=== PATIENT | female | born 1940 | race Caucasian/White ===

== ENCOUNTER 2017-12-17 07:19 | Day surgery (SDC) | payer MEDICARE ==
[2017-12-16 12:33] VITALS: BMI 32.8
[2017-12-17 07:50] LABS: #Basophils 0.1 thou/uL (0.0-0.2); #Eosinphils 0.2 thou/uL (0.0-0.7); #Lymphocytes 2.2 thou/uL (1.20-3.40); #Monocytes 0.4 thou/uL (0.11-0.59); #Neutrophils 3.2 thou/uL (1.40-6.50); %Eosinophils 2.5 % (0.0-10.0); %Lymphocytes 36.8 % (21.0-51.0); %Monocytes 7.1 % (0.0-10.0); %Neutrophils 52.5 % (42.0-75.0); Hemoglobin 12.2 g/dL (12.0-16.0); Mean Corpuscular Hemoglobin 38.4 pg (27.0-31.0); Mean Platelet Volume 6.5 fL (7.4-10.4); Platelet Count 266 thou/uL (130-400); RBC Distribution Width 13.6 % (11.5-14.5); Red Blood Cell (RBC) Count 3.18 mill/uL (4.20-5.40); White Blood Cell (WBC) Count 6.1 thou/uL (4.8-10.8)
[2017-12-17 07:57] LABS: INR-International Normal Ratio 1.1; Prothrombin Time 13.8 SEC (12.0-14.7)
[2017-12-17 07:58] LABS: PTT 30.6 SEC (22.9-36.1)
[2017-12-17 08:26] VITALS: BP 171/83; TEMP 97.4
[2017-12-17] MEDS ORDERED: Midazolam HCl 2 mg/2 ml Vial ONE (08:56)
[2017-12-17] MEDS ORDERED: Sodium Bicarbonate 2.5 MEQ/5 ML VIAL ONE (08:57)
[2017-12-17] MEDS ORDERED: Fentanyl 100 MCG/2 ML VIAL ONE (08:57)
[2017-12-17] MEDS ORDERED: Lidocaine 1% PF 5 ML VIAL ONE (08:57)
--- NOTE | 2017-12-17 11:32 | ULT ---
ULTRASOUND GUIDED HEPATIC BIOPSY: CLINICAL HISTORY: A 77-year-old female with autoimmune hepatitis. PROCEDURE: Informed consent was obtained. The patient was escorted to the procedural suite and placed into a durham pine position. The left hepatic lobe was localized sonographically. The patient's ventral abdomen w as then prepped and draped in the standard sterile fashion. The patient was administered conscious s edation by the radiology nurse, Shelly Jiménez, and monitored accordingly, in stable condition, throu ghout the duration of the procedure. A small skin incision was made at the ventral abdomen, with sub sequent placement of a trocar and a biopsy needle into the leading edge of the left hepatic lobe. An 18 gauge biopsy was utilized to obtain two separate core specimens that were placed into a sealed fo rmalin container and sent to pathology for further analysis. All devices were removed from the patie nt. Post procedural imaging was performed, which revealed no evidence of a hematoma. There were no procedural complications. The patient was observed in radiology holding for a period of time prior t o discharge with a family member, in stable condition. IMPRESSION: Technically successful ultrasound-guided hepatic biopsy. The pathology results are pending. POS: [facility]
== END 2017-12-17 11:10 | disposition home or self-care (01) ==
LOC: ULT 07:19
PROVIDERS: ATTEND Internal Medicine Gastroenterology
PROC: 0FB23ZX Excision of Left Lobe Liver, Percutaneous Approach, Diagnostic (ICD-10-PCS; principal; 2017-12-17)
DX: K75.4 Autoimmune hepatitis (principal); Z79.52 Long term (current) use of systemic steroids; Z79.899 Other long term (current) drug therapy; Z88.0 Allergy status to penicillin; Z88.5 Allergy status to narcotic agent; Z91.040 Latex allergy status
CPT/HCPCS: 36415; 47000; 76942; 85025; 85610; 85730; 88307; 88313; J2001; J2250; J3010

== ENCOUNTER 2018-03-08 09:00 | Outpatient (CLI) | payer MEDICARE | END 2018-03-08 09:01 | disposition home or self-care (01) | LOC: BICMAMMO 09:00 | PROVIDERS: ATTEND Family Medicine | DX: Z12.31 Encounter for screening mammogram for malignant neoplasm of breast (principal); R92.1 Mammographic calcification found on diagnostic imaging of breast; Z85.89 Personal history of malignant neoplasm of other organs and systems | CPT/HCPCS: 77063; 77067 ==

== ENCOUNTER 2019-02-22 10:41 | Outpatient (CLI) | payer MEDICARE ==
--- NOTE | 2019-02-22 11:15 | CT ---
CT Stone Protocol 02/22/2019 12:00 AM HISTORY: Recurring urinary tract infections. History of bladder surgery years ago. Abdominal pain. COMPARISON: None. Technique: Multiple contiguous axial CT images are obtained through the abdomen and pelvis without IV contrast. Coronal reformats are provided. FINDINGS: This examination is limited for the evaluation of solid organs and vascular structures due to the lac k of intravenous contrast. Lower Chest: Dependent bibasilar atelectasis is present. Abdomen: Liver: Grossly normal nonenhanced CT appearance. Gallbladder: Multiple gallbladder calculi are visualized largest measuring 2 cm. Pancreas: Grossly normal nonenhanced CT appearance. Spleen: Grossly normal nonenhanced CT appearance. Adrenals: Grossly normal nonenhanced CT appearance. Kidneys: Difficult to characterize exophytic superior pole right renal cystic lesion measuring 1.5 cm . This statistically likely represents a renal cyst. Renal sonogram would be helpful for further characterization. A subcentimeter too small to characterize hypodense lesion is seen in the midportio n left kidney. There is a lobulated appearance of each kidney probably related to lobulation. No renal calculi are seen bilaterally. No overt hydronephrosis is seen. Ureters: There is mild nonspecific prominence of each ureter, but no ureteral calculus is seen. There is suggestion of mild thickening of the harris of each ureter greater on the right which could be related to prior infectious or inflammatory process. Pelvis: Urinary bladder: A large calculus is present in the urinary bladder measuring 2.3 cm x 1.4 cm in axia l dimensions. Reproductive Organs: Evidence of hysterectomy. Lymph Nodes: No enlarged lymph nodes. Bowel: Small bowel is normal in caliber. Small amount of retained fecal material is seen in the ascen ding and transverse colon. Colonic diverticula are seen in the ascending colon. Appendix: The appendix is normal in caliber. Peritoneum: No free fluid, free air, or fluid collection. Retroperitoneum: within normal limits. Vessels: Vascular calcifications are seen in the abdominal aorta and involving the iliac arteries.. Abdominal Wall: within normal limits. Bones: A burst type fracture involves the L1 vertebral body of indeterminate age. There is greater th an 50% loss of height involving the midportion and anterior vertebral body. Slight retropulsion of the posterior superior and inferior endplates of the vertebral body are present. Trace anterolisthesi s of L4 and L5 is present. Multilevel degenerative changes are seen in the spine. IMPRESSION: 1. Mild prominence of the ureters bilaterally with suggestion of mild thickening of the harris of each ureter. This is an overall nonspecific finding and may be related to a prior infectious or inflammatory process. No periureteral or perinephric inflammatory changes are seen, and there is no h ydronephrosis. 2. Hypodense exophytic lesion superior pole right kidney which is difficult to characterize but stati stically likely represents a cyst. A subcentimeter too small to characterize hypodense lesion is seen in the midportion left kidney. 3. Urinary bladder calculus measuring 2.3 cm x 1.4 cm. 4. Cholelithiasis. 5. Hysterectomy. 6. Colonic diverticulosis. 7. Burst fracture L1 vertebral body with exaggerated kyphosis at this level. The age of this fracture is difficult to determine based on CT evaluation.
== END 2019-02-22 10:42 | disposition home or self-care (01) ==
LOC: BICCT 10:41
PROVIDERS: ATTEND Urology
DX: R10.9 Unspecified abdominal pain (principal); N28.89 Other specified disorders of kidney and ureter; N21.0 Calculus in bladder; K80.20 Calculus of gallbladder without cholecystitis without obstruction; K57.30 Diverticulosis of large intestine without perforation or abscess without bleeding; S32.011A Stable burst fracture of first lumbar vertebra, initial encounter for closed fracture; M40.209 Unspecified kyphosis, site unspecified; Z90.710 Acquired absence of both cervix and uterus; Z96.0 Presence of urogenital implants
CPT/HCPCS: 74176

== ENCOUNTER 2019-03-08 10:14 | Outpatient (CLI) | payer MEDICARE ==
[2019-03-08 11:57] LABS: Hemoglobin 10.9 g/dL (12.0-16.0); Mean Corpuscular HGB CONC 33.9 g/dL (32.0-36.0); Mean Corpuscular Hemoglobin 39.9 pg (27.0-31.0); Mean Platelet Volume 7.1 fL (7.4-10.4); Platelet Count 284 thou/uL (130-400); RBC Distribution Width 14.4 % (11.5-14.5); Red Blood Cell (RBC) Count 2.73 mill/uL (4.20-5.40); White Blood Cell (WBC) Count 5.9 thou/uL (4.8-10.8)
[2019-03-08 12:01] LABS: Bacteria/HPF 4+ HPF (None Seen); Bilirubin Negative (Negative); Blood, Urine Negative (Negative); Clarity Clear (Clear); Glucose, Urine (Dipstick) Normal (Negative); Leukocyte 500 Leu/uL (Negative); Nitrite Negative (Negative); Protein, Urine (Dipstick) 20 mg/dL (Neg-Trace); Urobilinogen 6 mg/dL (Less than 2); WBC/HPF 21-50 HPF (0-3)
[2019-03-08 12:02] LABS: PTT 33.2 SEC (22.9-36.1); Prothrombin Time 13.5 SEC (12.0-14.7)
[2019-03-08 12:26] LABS: Anion Gap 14 mmol/L (10-20); BUN (Urea Nitrogen) 31 mg/dL (9.8-20.1); Calc. Creatinine Clearance 0 mL/min (70-130); Calcium 9.6 mg/dL (7.8-10.44); Carbon Dioxide 25 mmol/L (23-31); Chloride 100 mmol/L (98-107); Estimated GFR-MDRD 40; Glucose 87 mg/dL (83-110); Potassium 4.7 mmol/L (3.5-5.1); Sodium 134 mmol/L (136-145)
--- NOTE | 2019-03-11 10:09 | EKG ---
Test Reason : Blood Pressure : / mmHG Vent. Rate : 073 BPM Atrial Rate : 073 BPM P-R Int : 174 ms QRS Dur : 076 ms QT Int : 386 ms P-R-T Axes : 055 057 042 degrees QTc Int : 425 ms Sinus rhythm with Premature ventricular complexes or Fusion complexes Cannot rule out Anterior infarct , age undetermined Abnormal ECG Confirmed by MAX ELLSWORTH MD ([id number]) on 03/11/2019 10:08:46 AM Referred By: JAYE Confirmed By:MAX ELLSWORTH MD
== END 2019-03-08 10:15 | disposition home or self-care (01) ==
LOC: LABBT 10:14
PROVIDERS: ATTEND Urology
DX: Z01.818 Encounter for other preprocedural examination (principal); N21.0 Calculus in bladder; N20.1 Calculus of ureter
CPT/HCPCS: 80048; 81001; 85027; 85610; 85730; 87077; 87086; 87186; 93005; 93010

== ENCOUNTER 2019-03-09 07:56 | Outpatient (CLI) | payer MEDICARE ==
--- NOTE | 2019-03-09 09:32 | MMO ---
Bilateral MAMMO Bilat Screen [facility]. CLINICAL HISTORY: Patient is 79 years old and is seen for screening. The patient has no family history of breast cancer. VIEWS: The views performed were: bilateral craniocaudal with tomosynthesis and bilateral mediolateral oblique with tomosynthesis. FILMS COMPARED: The present examination has been compared to prior imaging studies performed at [facility] on 02/20/2014, 02/14/2016, 03/04/2017 and 03/08/2018. This study has been interpreted with the assistance of computer-aided detection. MAMMOGRAM FINDINGS: There are scattered fibroglandular densities. There are vascular calcifications seen in both breasts. There are no suspicious masses, suspicious calcifications, or new areas of architectural distortion. IMPRESSION: THERE IS NO MAMMOGRAPHIC EVIDENCE OF MALIGNANCY. A ROUTINE FOLLOW-UP MAMMOGRAM IN 1 YEAR IS RECOMMENDED. THE RESULTS OF THIS EXAM WERE SENT TO THE PATIENT. ACR BI-RADS Category 2 - Benign finding MAMMOGRAPHY NOTE: 1. A negative mammogram report should not delay a biopsy if a dominant of clinically suspicious mass is present. 2. Approximately 10% to 15% of breast cancers are not detected by mammography. 3. Adenosis and dense breasts may obscure an underlying neoplasm. Reported by: GABI GOMEZ MD Electonically Signed: [id number]
== END 2019-03-09 07:57 | disposition home or self-care (01) ==
LOC: BICMAMMO 07:56
PROVIDERS: ATTEND Family Medicine
DX: Z12.31 Encounter for screening mammogram for malignant neoplasm of breast (principal)
CPT/HCPCS: 77063; 77067

== ENCOUNTER 2019-03-11 05:45 | Day surgery (SDC) | payer MEDICARE ==
[2019-03-08 10:34] VITALS: BMI 26.5
[2019-03-11] MEDS ORDERED: Levofloxacin 500 mg/D5W 100 ml Premix Bag ONE (07:06)
[2019-03-11] MEDS ORDERED: Midazolam HCl 2 mg/2 ml Vial ONE (07:12)
[2019-03-11] MEDS ORDERED: Fentanyl 100 MCG/2 ML VIAL ONE (07:17)
[2019-03-11] MEDS ORDERED: Ketamine 50 MG/ML (10ML VIAL) ONE (07:19)
[2019-03-11] MEDS ORDERED: cefTRIAXone\\ROCEPHIN 1 GM VIAL ONE (07:33)
[2019-03-11] MEDS ORDERED: Sodium Chloride 0.9% 100 ML ONE (07:33)
[2019-03-11] MEDS ORDERED: Phenazopyridine HCl 97.5 MG TABLET ONE (08:47)
[2019-03-11] MEDS ORDERED: Oxybutynin 5 MG TAB ONE (08:47)
--- NOTE | 2019-03-11 10:53 | OP ---
DATE OF PROCEDURE: 03/11/2019 SERVICE: Urology. PREOPERATIVE DIAGNOSIS: Bladder stone. POSTOPERATIVE DIAGNOSIS: Bladder stone with retained foreign body of suture material and no ureteral calculi. PROCEDURES PERFORMED: Cystolitholapaxy with diagnostic ureteroscopy and removal of foreign body, complex removal. INDICATION FOR PROCEDURE: Mrs. Livingston is an 79-year-old white female, who presented with ongoing history of chronic bladder pain, urgency, frequency, and recurrent UTIs. Cystoscopy demonstrated a bladder stone what appeared to be a retained stent. CT did not demonstrate any problems in the ureter or retained stent by radiographic evidence. She is coming to the OR for removal of the foreign body and further diagnostic as to what this retained body is from. Risks and benefits, and alternatives have been discussed and she has agreed to proceed forward. DESCRIPTION OF PROCEDURE: After identification of armband and verification of consent, the patient was brought back to the operating room, where she underwent general anesthesia with an LMA. She was then placed in dorsal lithotomy position and prepped and draped in usual sterile fashion. After appropriate time-out, a lubricated 22-Ugandan rigid cystoscope was introduced per urethra into the bladder. A full cystoscopy was performed, which demonstrated what appeared to be a calcified linear material coming out from the right ureter into a large stone, which looked like a retained stent, although we know that is not what this is based off CT scan. A 1000 micron laser fiber was brought in, and cystolitholapaxy was begun of the large bladder stone. The stone was broken down into small pieces until the final stone got toward the foreign body, which revealed a white suture like material of abraded white suture similar to a Vicryl with a metal tip, which had become the nidus for the stone. The tip was extremely hard and dense, and was unable to be fragmented with the laser, but was able to be made small enough that it could be brought out through the urethra. The stone fragments were evacuated with the [employer] evacuator. A diagnostic ureteroscopy was performed with a rigid ureteroscope into the right ureter and it appeared that the suture material was actually emanating from near the ureteral orifice, but did not actually come from within the ureter. It was coming from the wall of the ureter and coming out into the bladder. From coming in with a ureteroscope into the right ureter, the origin point of the suture would be approximately 5 o'clock. Ureteroscopy was performed up to the mid ureter and no stones, foreign body, or strictures were noted. The ureter was widely patent and draining nicely. The ureteroscope was then removed, and the cystoscope was reinserted back into the bladder. Attempts to pull the suture out with flexible graspers gently was unsuccessful. Despite gentle traction, the suture material would not release indicating that it was tethered to either the graft material of her anterior prolapse repair or to some other suture material that was placed likely during her anterior repair or other gynecologic surgery. With as much traction as could be gained on the suture, the suture was gently left. It did retract somewhat, but stuck out more than it did before pulling traction on it. The endoscopic scissors were brought in and placed as close to the origin point of where the suture was coming out of the ureter and then clipped. The suture cut easily. The suture and foreign body within the bladder were then removed using flexible graspers. The origin point of the suture could no longer be seen and looked like the suture retracted back underneath the urothelium. Hopefully, the urothelium will heal over this area and she will not develop a stricture or another stone at the site. Satisfied that the foreign body and nidus for the stone now gone, and all the stone fragments had been evacuated using the Wireless Toyz evacuator. The cystoscope was used to empty the bladder and then removed. The patient was then awakened, taken to PACU for recovery in stable condition. COMPLICATIONS: None. ESTIMATED BLOOD LOSS: Minimal. RETAINED TUBES AND DRAINS: None. SPECIMENS: Stone for stone analysis and foreign body for identification. DISPOSITION: The patient will be discharged home and follow up with me in approximately 2 weeks for postop check. Job ID: [id number]
[2019-03-15 14:09] LABS: Ammonium Acid Urate 15 % (.); CA Phosphate 52 % (.); Color Tan (.); Mg Ammon Phos 30 % (.)
== END 2019-03-11 09:50 | disposition home or self-care (01) ==
LOC: SDC 05:45
PROVIDERS: ATTEND Urology
PROC: 0TCB8ZZ Extirpation of Matter from Bladder, Via Natural or Artificial Opening Endoscopic (ICD-10-PCS; principal; 2019-03-11)
DX: N21.0 Calculus in bladder (principal); E78.5 Hyperlipidemia, unspecified; I10 Essential (primary) hypertension; Z18.89 Other specified retained foreign body fragments; Z79.899 Other long term (current) drug therapy; Z88.5 Allergy status to narcotic agent; Z88.0 Allergy status to penicillin; Z91.040 Latex allergy status
CPT/HCPCS: 52318; 76000; 82365; 88300; C1769; J0696; J1956; J2250; J3010; J3490

== ENCOUNTER 2019-06-23 13:53 | Outpatient (CLI) | payer MEDICARE ==
--- NOTE | 2019-06-23 15:28 | ULT ---
Exam: Bilateral renal ultrasound HISTORY: Bladder calculi COMPARISON: None Correlation: CT stone protocol 02/22/2019 FINDINGS: Right kidney: Normal cortical echotexture. No hydronephrosis. Anechoic focus emanating from the upper pole measuring 1.7 x 1.4 x 1.6 cm, compatible with a cyst. Right kidney measurements: 9.0 x 4.0 x 4.1 cm. Left kidney: Normal cortical echotexture. No hydronephrosis Left kidney measurements 8.8 x 4.7 x 4.7 cm. Urinary bladder: Normal mucosa. Prevoid volume 243 mL. Post void volume 36 mL. Bilateral ureteral jet s are identified. Incidentals: Gallstone is noted IMPRESSION: No hydronephrosis.
== END 2019-06-23 13:54 | disposition home or self-care (01) ==
LOC: BICULT 13:53
PROVIDERS: ATTEND Urology
DX: N21.0 Calculus in bladder (principal)
CPT/HCPCS: 76770

== ENCOUNTER 2020-04-11 09:25 | Outpatient (CLI) | payer MEDICARE ==
--- NOTE | 2020-04-11 10:11 | BD ---
EXAM: Bone densitometry using DEXA HISTORY: 80 yo female. Screening for postmenopausal osteoporosis FINDINGS: L1--bone mineral density 1.067 g/sq cm; T score 0.7 ; Z score 3.1 L2--bone mineral density 1.140 g/sq cm; T score 1.0 ; Z score 3.7 L3--bone mineral density 1.128 g/sq cm; T score 0.4 ; Z score 3.2 L4--bone mineral density 1.041 g/sq cm; T score -0.2 ; Z score 2.7 Total L1-L4--bone mineral density 1.090 g/sq cm; T score 0.4 ; Z score 3.1 Left femoral neck--bone mineral density0.688; T score -1.5 ; Z score 0.9 Total proximal left femur--bone mineral density 0.826; T score -1.0 ; Z score 1.2 There has been an interval reduction of 8.4% in the BMD of the lumbar spine and a reduction of 23.2 % in the BMD of the proximal femur since the previous study of 02/28/2003. The 10 year fracture risk for a major osteoporotic fracture is 13% and for a hip fracture is 3.2%. IMPRESSION: Osteopenia
--- NOTE | 2020-04-11 10:51 | MMO ---
Bilateral MAMMO Bilat Screen [facility]. CLINICAL HISTORY: Patient is 80 years old and is seen for screening. The patient has no family history of breast cancer. VIEWS: The views performed were: bilateral craniocaudal with tomosynthesis and bilateral mediolateral oblique with tomosynthesis. FILMS COMPARED: The present examination has been compared to prior imaging studies performed at [facility] on 02/14/2016, 03/04/2017, 03/08/2018 and 03/09/2019. This study has been interpreted with the assistance of computer-aided detection. MAMMOGRAM FINDINGS: There are scattered fibroglandular densities. Benign calcifications are noted bilaterally. There are no suspicious masses, suspicious calcifications, or new areas of architectural distortion. IMPRESSION: THERE IS NO MAMMOGRAPHIC EVIDENCE OF MALIGNANCY. A ROUTINE FOLLOW-UP MAMMOGRAM IN 1 YEAR IS RECOMMENDED. THE RESULTS OF THIS EXAM WERE SENT TO THE PATIENT. ACR BI-RADS Category 2 - Benign finding MAMMOGRAPHY NOTE: 1. A negative mammogram report should not delay a biopsy if a dominant of clinically suspicious mass is present. 2. Approximately 10% to 15% of breast cancers are not detected by mammography. 3. Adenosis and dense breasts may obscure an underlying neoplasm. Reported by: ARELI SCHNEIDER MD Electonically Signed: [id number]
== END 2020-04-11 09:26 | disposition home or self-care (01) ==
LOC: BICMAMMO 09:25
PROVIDERS: ATTEND Family Medicine
DX: Z12.31 Encounter for screening mammogram for malignant neoplasm of breast (principal); N95.9 Unspecified menopausal and perimenopausal disorder; M85.852 Other specified disorders of bone density and structure, left thigh
CPT/HCPCS: 77063; 77067; 77080

== ENCOUNTER 2021-04-30 15:08 | Outpatient (CLI) | payer MEDICARE | END 2021-04-30 15:09 | disposition home or self-care (01) | LOC: BICMAMMO 15:08 | PROVIDERS: ATTEND Family Medicine | DX: Z12.31 Encounter for screening mammogram for malignant neoplasm of breast (principal); Z85.89 Personal history of malignant neoplasm of other organs and systems | CPT/HCPCS: 77063; 77067 ==

== ENCOUNTER 2022-05-28 09:21 | Outpatient (CLI) | payer MEDICARE | END 2022-05-28 09:22 | disposition home or self-care (01) | LOC: BICMAMMO 09:21 | PROVIDERS: ATTEND Family Medicine | DX: Z12.31 Encounter for screening mammogram for malignant neoplasm of breast (principal); M85.851 Other specified disorders of bone density and structure, right thigh; M85.852 Other specified disorders of bone density and structure, left thigh | CPT/HCPCS: 77063; 77067; 77080 ==

== ENCOUNTER 2023-06-09 11:39 | Outpatient (CLI) | payer MEDICARE | END 2023-06-09 11:40 | disposition home or self-care (01) | LOC: BICMAMMO 11:39 | PROVIDERS: ATTEND Family Medicine | DX: Z12.31 Encounter for screening mammogram for malignant neoplasm of breast (principal) | CPT/HCPCS: 77063; 77067 ==

== ENCOUNTER 2024-03-15 13:05 | Outpatient (CLI) | payer MEDICARE ==
[2024-03-15 14:46] LABS: #Basophils 0.05 10x3/uL (0.0-0.2); %Basophils 0.8 % (0.0-1.0); %Eosinophils 1.7 % (0.0-10.0); %Lymphocytes 31.4 % (21.0-51.0); %Monocytes 9.4 % (0.0-10.0); %Neutrophils 56.4 % (42.0-75.0); Hematocrit 36.5 % (36.0-47.0); Hemoglobin 11.8 g/dL (12.0-16.0); Mean Corpuscular HGB CONC 32.3 g/dL (32.0-36.0); Mean Corpuscular Hemoglobin 32.2 pg (27.0-31.0); Mean Corpuscular Volume 99.5 fL (78.0-98.0); Mean Platelet Volume 9.8 fL (7.4-10.4); Platelet Count 286 10x3/uL (130-400); RBC Distribution Width 16.5 % (11.5-14.5); Red Blood Cell (RBC) Count 3.67 mill/uL (4.20-5.40)
[2024-03-15 15:04] LABS: Anion Gap 13 mmol/L (10-20); BUN (Urea Nitrogen) 16 mg/dL (9.8-20.1); Calc. Creatinine Clearance 0 mL/min (70-130); Calcium 9.5 mg/dL (7.8-10.44); Carbon Dioxide 23 mmol/L (23-31); Chloride 102 mmol/L (98-107); Estimated GFR 53; Glucose 90 mg/dL (83-110); Potassium 4.5 mmol/L (3.5-5.1); Sodium 133 mmol/L (136-145)
[2024-03-15 15:05] LABS: ALT (SGPT) 14 U/L (8-55); AST (SGOT) 42 U/L (5-34); Albumin 3.2 g/dL (3.4-4.8); Alkaline Phosphatase 139 U/L (40-110); Bilirubin, Direct 0.2 mg/dL (0.1-0.3); Bilirubin, Total 0.5 mg/dL (0.2-1.2); Protein, Total 7.5 g/dL (5.8-8.1)
[2024-03-15 15:07] LABS: INR-International Normal Ratio 1.2; PTT 36.3 sec (22.9-36.1); Prothrombin Time 15.6 sec (12.0-14.7)
== END 2024-03-15 13:06 | disposition home or self-care (01) ==
LOC: LABBT 13:05
PROVIDERS: ATTEND Orthopaedic Surgery
DX: Z01.818 Encounter for other preprocedural examination (principal); M17.12 Unilateral primary osteoarthritis, left knee
CPT/HCPCS: 80048; 80076; 85025; 85610; 85730; 87081; 93005; 93010

== ENCOUNTER 2024-03-22 05:29 | Day surgery (SDC) | payer MEDICARE ==
[2024-03-15 13:47] VITALS: BMI 29.7
[2024-03-22] MEDS ORDERED: Midazolam HCl 2 mg/2 ml Vial ONE (06:18)
[2024-03-22] MEDS ORDERED: Dexamethasone 20 MG/5 ML VIAL ONE (06:18)
[2024-03-22] MEDS ORDERED: fentaNYL PF 100 MCG/2 ML SYRINGE ONE (06:18)
[2024-03-22] MEDS ORDERED: Ondansetron PF 4 MG/2 ML Vial ONE (06:18)
[2024-03-22] MEDS ORDERED: Lidocaine 1% PF 5 ML VIAL ONE (06:18)
[2024-03-22] MEDS ORDERED: PROPOFOL 0 ML ONE (06:18)
[2024-03-22] MEDS ORDERED: Lidocaine 2% 6 ML (Jelly) SYR ONE (06:19)
[2024-03-22] MEDS ORDERED: EPINEPHrine 1 MG/ML VIAL ONE (06:24)
[2024-03-22] MEDS ORDERED: Bupivacaine 0.25% HCL 30 ML VIAL ONE (06:25)
[2024-03-22] MEDS ORDERED: Ondansetron HCl/PF 4 MG/2 ML Vial IVP PRN (06:38)
[2024-03-22] MEDS ORDERED: Promethazine HCl 25 MG/ML VIAL IM PRN (06:38)
== END 2024-03-22 07:02 | disposition short-term general hospital (02) ==
LOC: SDC 05:29
PROVIDERS: ATTEND Orthopaedic Surgery
DX: M17.12 Unilateral primary osteoarthritis, left knee (principal); Z53.8 Procedure and treatment not carried out for other reasons; M79.89 Other specified soft tissue disorders
CPT/HCPCS: 82962; 93970; 96374; 99283; J1885; 36416; J0171; J0665; J1100; J2250; J2405; J2704

== ENCOUNTER 2024-03-22 07:34 | Emergency (ER) | payer MEDICARE ==
[2024-03-22] MEDS ORDERED: Ketorolac Tromethamine 30 MG (1 mL) VIAL ONE (09:22)
== END 2024-03-22 09:44 | disposition home or self-care (01) ==
LOC: ERS 07:34
DX: M71.22 Synovial cyst of popliteal space [Baker], left knee (principal); I10 Essential (primary) hypertension
CPT/HCPCS: 93970; J1885

== ENCOUNTER 2024-04-26 10:00 | Outpatient (CLI) | payer MEDICARE ==
[2024-04-26 11:36] LABS: #Basophils 0.05 10x3/uL (0.0-0.2); %Basophils 0.8 % (0.0-1.0); %Eosinophils 0.8 % (0.0-10.0); %Monocytes 8.3 % (0.0-10.0); %Neutrophils 65.9 % (42.0-75.0); Hematocrit 35.6 % (36.0-47.0); Mean Corpuscular HGB CONC 33.7 g/dL (32.0-36.0); Mean Corpuscular Hemoglobin 32.3 pg (27.0-31.0); Mean Platelet Volume 9.3 fL (7.4-10.4); Platelet Count 264 10x3/uL (130-400); RBC Distribution Width 16.9 % (11.5-14.5); Red Blood Cell (RBC) Count 3.71 mill/uL (4.20-5.40)
[2024-04-26 11:51] LABS: INR-International Normal Ratio 1.1; Prothrombin Time 14.6 sec (12.0-14.7)
[2024-04-26 11:52] LABS: PTT 35.3 sec (22.9-36.1)
[2024-04-26 14:14] LABS: ALT (SGPT) 11 U/L (8-55); AST (SGOT) 40 U/L (5-34); Albumin 3.3 g/dL (3.4-4.8); Alkaline Phosphatase 151 U/L (40-110); Bilirubin, Direct 0.3 mg/dL (0.1-0.3); Bilirubin, Total 0.6 mg/dL (0.2-1.2); Protein, Total 7.6 g/dL (5.8-8.1)
[2024-04-26 14:15] LABS: Anion Gap 14 mmol/L (10-20); BUN (Urea Nitrogen) 13 mg/dL (9.8-20.1); Calc. Creatinine Clearance 0 mL/min (70-130); Calcium 9.5 mg/dL (7.8-10.44); Carbon Dioxide 23 mmol/L (23-31); Chloride 105 mmol/L (98-107); Estimated GFR 70; Glucose 103 mg/dL (83-110); Potassium 4.7 mmol/L (3.5-5.1); Sodium 137 mmol/L (136-145)
== END 2024-04-26 10:01 | disposition home or self-care (01) ==
LOC: LABBT 10:00
PROVIDERS: ATTEND Orthopaedic Surgery
DX: Z01.812 Encounter for preprocedural laboratory examination (principal); M17.12 Unilateral primary osteoarthritis, left knee
CPT/HCPCS: 80048; 80076; 85025; 85730; 87081; 93005; 93010

== ENCOUNTER 2024-05-03 09:23 | Observation (INO) | payer MEDICARE ==
[2024-04-26 10:37] VITALS: BMI 29.7
[2024-05-03] MEDS ORDERED: Vancomycin 1 GM/200 ML (FROZEN) BAG ONE (10:13)
[2024-05-03] MEDS ORDERED: Tranexamic Acid 1,000 MG/10 ML VIAL ONE (10:13)
[2024-05-03] MEDS ORDERED: Sodium Chloride 0.9% 100 ML ONE (10:13)
[2024-05-03] MEDS ORDERED: PROPOFOL 20 ML ONE (10:24)
[2024-05-03] MEDS ORDERED: fentaNYL PF 100 MCG/2 ML SYRINGE ONE (10:24)
[2024-05-03] MEDS ORDERED: Ondansetron PF 4 MG/2 ML Vial ONE (10:25)
[2024-05-03] MEDS ORDERED: Lidocaine 2% 6 ML (Jelly) SYR ONE (10:25)
[2024-05-03] MEDS ORDERED: Dexamethasone 20 MG/5 ML VIAL ONE (10:25)
[2024-05-03] MEDS ORDERED: Lidocaine 1% PF 5 ML VIAL ONE (10:25)
[2024-05-03] MEDS ORDERED: Bupivacaine PF 0.5% 30 ML VIAL ONE (10:29)
[2024-05-03] MEDS ORDERED: fentaNYL 50 mcg/mL 1 mL Vial ONE ×3 (10:29→13:23)
[2024-05-03] MEDS ORDERED: EPINEPHrine 1 MG/ML VIAL ONE (10:44)
[2024-05-03] MEDS ORDERED: Midazolam HCl 2 mg/2 ml Vial ONE (10:44)
[2024-05-03] MEDS ORDERED: Bupivacaine 0.25% HCL 30 ML VIAL ONE (10:44)
[2024-05-03] MEDS ORDERED: CEFAZOLIN 2 GM VIAL ONE (11:13)
[2024-05-03] MEDS ORDERED: Zolpidem Tartrate 5 MG TAB PO PRN (11:30)
[2024-05-03] MEDS ORDERED: Ropivacaine 0.2% 550 ML 550 ML NERVE BLCK SCH (11:30)
[2024-05-03] MEDS ORDERED: fentaNYL 50 mcg/mL 1 mL Vial SLOW IVP PRN (11:30)
[2024-05-03] MEDS ORDERED: Ondansetron PF 4 MG/2 ML Vial IVP PRN (11:30)
[2024-05-03] MEDS ORDERED: HYDROcodone/Acetaminophen 10/325 mg Tablet PO PRN (11:30)
[2024-05-03] MEDS ORDERED: Promethazine HCl 25 MG/ML VIAL IM PRN (11:30)
[2024-05-03] MEDS ORDERED: ePHEDrine Sulfate 50 MG/10 ML VIAL ONE (11:35)
[2024-05-03] MEDS ORDERED: diphenhydrAMINE 25 MG CAP PO PRN (13:29)
[2024-05-03] MEDS: Ketorolac Tromethamine 30 MG (1 mL) VIAL IVP SCH (16:06)
[2024-05-03] MEDS: Acetaminophen 325 MG TAB PO PRN (16:58)
[2024-05-03] MEDS: Sodium Chloride 0.9% 1,000 ML IV SCH (17:00)
[2024-05-03] MEDS: CEFAZOLIN 2 GM in Sodium Chloride 0.9% 100 ML IVPB SCH (20:13)
[2024-05-03] MEDS: Aspirin 81 mg Enteric Coated Tablet PO SCH (20:14)
[2024-05-03] MEDS: Ferrous Gluconate 324 MG TAB PO SCH (20:14)
[2024-05-03] MEDS: Senokot S 8.6-50 MG TAB PO SCH (20:15)
[2024-05-04] MEDS: HYDROcodone/Acetaminophen 10/325 mg Tablet PO PRN (00:09)
[2024-05-04 06:48] LABS: Hematocrit 28.1 % (36.0-47.0); Hemoglobin 9.4 g/dL (12.0-16.0); Mean Corpuscular HGB CONC 33.5 g/dL (32.0-36.0); Mean Corpuscular Hemoglobin 31.6 pg (27.0-31.0); Mean Corpuscular Volume 94.6 fL (78.0-98.0); Mean Platelet Volume 9.9 fL (7.4-10.4); Platelet Count 202 10x3/uL (130-400); RBC Distribution Width 17.4 % (11.5-14.5); Red Blood Cell (RBC) Count 2.97 mill/uL (4.20-5.40)
[2024-05-04] MEDS: Cyanocobalamin (Vitamin B-12) 1,000 MCG TAB PO SCH (08:27)
[2024-05-04] MEDS: predniSONE 1 MG TAB PO SCH (08:28)
[2024-05-04] MEDS: Metoprolol Tartrate 50 MG TAB PO SCH (08:28)
[2024-05-04] MEDS: Multivitamin W/ Minerals 1 TAB PO SCH (08:29)
[2024-05-04] MEDS: Rosuvastatin 20 MG TAB PO SCH (08:29)
[2024-05-04] MEDS: azaTHIOprine 50 MG TAB PO SCH (08:29)
[2024-05-05 04:34] LABS: Hematocrit 29.3 % (36.0-47.0); Hemoglobin 9.8 g/dL (12.0-16.0); Mean Corpuscular HGB CONC 33.4 g/dL (32.0-36.0); Mean Corpuscular Hemoglobin 32.2 pg (27.0-31.0); Mean Corpuscular Volume 96.4 fL (78.0-98.0); Platelet Count 206 10x3/uL (130-400); Red Blood Cell (RBC) Count 3.04 mill/uL (4.20-5.40)
[2024-05-05 15:23] VITALS: BP 110/69; TEMP 97.9
== END 2024-05-05 15:25 | disposition home or self-care (01) ==
LOC: SDC 09:23 → SURG A 15:59
PROVIDERS: ADMIT Orthopaedic Surgery; ATTEND Orthopaedic Surgery
PROC: 0SRD0JZ Replacement of Left Knee Joint with Synthetic Substitute, Open Approach (ICD-10-PCS; principal; 2024-05-03)
PROC: 3E0T3BZ Introduction of Anesthetic Agent into Peripheral Nerves and Plexi, Percutaneous Approach (ICD-10-PCS; 2024-05-03)
DX: M17.12 Unilateral primary osteoarthritis, left knee (principal); I10 Essential (primary) hypertension; E78.5 Hyperlipidemia, unspecified; E53.8 Deficiency of other specified B group vitamins; K75.4 Autoimmune hepatitis; N28.9 Disorder of kidney and ureter, unspecified; Z91.040 Latex allergy status; Z88.0 Allergy status to penicillin; Z88.8 Allergy status to other drugs, medicaments and biological substances; Z88.5 Allergy status to narcotic agent; Z79.899 Other long term (current) drug therapy
CPT/HCPCS: 0055T; 27447; 64448; 36415; 36416; 85027; A4306; C1713; C1776; C1889; J0171; J0665; J1100; J1885; J2250; J2405; J2704; J2795; J3010; J3370; J7030; J7500; J7512

== ENCOUNTER 2024-06-15 07:56 | Outpatient (CLI) | payer MEDICARE | END 2024-06-15 07:57 | disposition home or self-care (01) | LOC: BICMAMMO 07:56 | PROVIDERS: ATTEND Family Medicine | DX: Z12.31 Encounter for screening mammogram for malignant neoplasm of breast (principal); Z78.0 Asymptomatic menopausal state; M85.851 Other specified disorders of bone density and structure, right thigh; M85.852 Other specified disorders of bone density and structure, left thigh; Z85.89 Personal history of malignant neoplasm of other organs and systems | CPT/HCPCS: 77063; 77067; 77080 ==

== ENCOUNTER 2025-03-05 13:14 | Inpatient (IN) | payer MEDICARE ==
[2025-03-05 14:39] LABS: #Basophils 0.03 10x3/uL (0.0-0.2); #Eosinophils 0.04 10x3/uL (0.0-0.7); #Monocytes 0.27 10x3/uL (0.11-0.59); #Neutrophils 3.78 10x3/uL (1.40-6.50); %Basophils 0.6 % (0.0-1.0); %Eosinophils 0.8 % (0.0-10.0); %Lymphocytes 17.0 % (21.0-51.0); %Monocytes 5.4 % (0.0-10.0); %Neutrophils 75.6 % (42.0-75.0); Hematocrit 31.8 % (36.0-47.0); Hemoglobin 10.8 g/dL (12.0-16.0); Mean Corpuscular Hemoglobin 33.0 pg (27.0-31.0); Mean Corpuscular Volume 97.2 fL (78.0-98.0); Platelet Count 210 10x3/uL (130-400); Red Blood Cell (RBC) Count 3.27 mill/uL (4.20-5.40); White Blood Cell (WBC) Count 5.00 10x3/uL (4.8-10.8)
[2025-03-05 14:58] LABS: ALT (SGPT) 92 U/L (Less than 34); AST (SGOT) 362 U/L (11-34); Albumin 2.3 g/dL (3.1-4.5); Alkaline Phosphatase 311 U/L (40-110); Anion Gap 17 mmol/L (10-20); BUN (Urea Nitrogen) 43 mg/dL (9.8-20.1); Bilirubin, Total 2.5 mg/dL (0.3-1.2); Calc. Creatinine Clearance 0 mL/min (70-130); Calcium 8.6 mg/dL (7.8-10.44); Carbon Dioxide 17 mmol/L (23-31); Chloride 105 mmol/L (98-107); Globulin 4.1 g/dL (2.4-3.5); Glucose 95 mg/dL (83-110); Magnesium 2.3 mg/dL (1.6-2.6); Potassium 4.5 mmol/L (3.5-5.1); Sodium 134 mmol/L (136-145)
[2025-03-05] MEDS ORDERED: Enoxaparin 80 MG (0.8 mL) SYRINGE ONE (16:22)
[2025-03-05 18:29] LABS: Bacteria/HPF 3+ HPF (None Seen); CAUTI Indications for Culture Alt mental st,lethar; Glucose, Urine (Dipstick) Normal (Negative); Leukocyte 500 Leu/uL (Negative); Protein, Urine (Dipstick) 100 mg/dL (Neg-Trace); RBC/HPF 21-50 HPF (0-3); Specific Gravity, Urine 1.017 (1.002-1.036); WBC/HPF Greater than 50 HPF (0-3)
[2025-03-05 18:30] LABS: Urine Culture Reflex Yes Yes
[2025-03-05] MEDS ORDERED: Calcium Carbonate 500 MG ChewTAB PO PRN (18:37)
[2025-03-05] MEDS ORDERED: Guaifenesin DM 100-10/5 ML UDCUP PO PRN (18:37)
[2025-03-05] MEDS ORDERED: HYDROcodone/Acetaminophen 10/325 mg Tablet PO PRN (18:41)
[2025-03-05] MEDS ORDERED: Heparin 10,000 UNITS/ 10 ML VIAL SLOW IVP SCH (18:45)
[2025-03-05 21:51] LABS: Hematocrit 31.5 % (36.0-47.0); Hemoglobin 10.4 g/dL (12.0-16.0); Platelet Count 183 10x3/uL (130-400)
[2025-03-05] MEDS: Rosuvastatin 20 MG TAB PO SCH (22:01)
[2025-03-05] MEDS: Aspirin 81 mg Enteric Coated Tablet PO SCH (22:01)
[2025-03-05 23:04] LABS: Hematocrit 29.5 % (36.0-47.0); Hemoglobin 9.8 g/dL (12.0-16.0); Platelet Count 164 10x3/uL (130-400)
[2025-03-05] MEDS: Acetaminophen 325 MG TAB PO SCH (23:38)
[2025-03-06 06:03] LABS: #Basophils 0.03 10x3/uL (0.0-0.2); #Eosinophils 0.07 10x3/uL (0.0-0.7); #Monocytes 0.21 10x3/uL (0.11-0.59); #Neutrophils 3.02 10x3/uL (1.40-6.50); %Basophils 0.6 % (0.0-1.0); %Eosinophils 1.5 % (0.0-10.0); %Lymphocytes 29.5 % (21.0-51.0); %Monocytes 4.4 % (0.0-10.0); %Neutrophils 63.6 % (42.0-75.0); Hematocrit 28.4 % (36.0-47.0); Hemoglobin 9.9 g/dL (12.0-16.0); Mean Corpuscular Hemoglobin 33.3 pg (27.0-31.0); Mean Corpuscular Volume 95.6 fL (78.0-98.0); Platelet Count 162 10x3/uL (130-400); Red Blood Cell (RBC) Count 2.97 mill/uL (4.20-5.40); White Blood Cell (WBC) Count 4.75 10x3/uL (4.8-10.8)
[2025-03-06 06:18] LABS: Anion Gap 14 mmol/L (10-20); BUN (Urea Nitrogen) 41 mg/dL (9.8-20.1); Calc. Creatinine Clearance 21 mL/min (70-130); Calcium 8.1 mg/dL (7.8-10.44); Carbon Dioxide 17 mmol/L (23-31); Chloride 109 mmol/L (98-107); Glucose 73 mg/dL (83-110); Potassium 4.6 mmol/L (3.5-5.1); Sodium 135 mmol/L (136-145)
[2025-03-06] MEDS ORDERED: Metoprolol Succinate XL 100 MG ER.TAB PO SCH (09:00)
[2025-03-06] MEDS: LevoFLOXacin 250 mg/D5W 250 MG in Premix 1 BAG IVPB SCH (13:02)
[2025-03-06] MEDS ORDERED: Heparin 10,000 UNITS/ 10 ML VIAL SLOW IVP SCH (16:00)
[2025-03-06 23:17] LABS: Iron 130 ug/dL (50-170); Iron Binding Capacity, Total 120 mcg/dL (265-497)
[2025-03-07 05:09] LABS: #Basophils 0.04 10x3/uL (0.0-0.2); #Eosinophils 0.04 10x3/uL (0.0-0.7); #Monocytes 0.16 10x3/uL (0.11-0.59); #Neutrophils 3.50 10x3/uL (1.40-6.50); %Basophils 0.9 % (0.0-1.0); %Eosinophils 0.9 % (0.0-10.0); %Lymphocytes 18.0 % (21.0-51.0); %Monocytes 3.5 % (0.0-10.0); %Neutrophils 75.8 % (42.0-75.0); Hematocrit 25.7 % (36.0-47.0); Hemoglobin 8.8 g/dL (12.0-16.0); Mean Corpuscular Hemoglobin 33.6 pg (27.0-31.0); Mean Corpuscular Volume 98.1 fL (78.0-98.0); Platelet Count 137 10x3/uL (130-400); Red Blood Cell (RBC) Count 2.62 mill/uL (4.20-5.40); White Blood Cell (WBC) Count 4.61 10x3/uL (4.8-10.8)
[2025-03-07 05:42] LABS: Anion Gap 16 mmol/L (10-20); BUN (Urea Nitrogen) 49 mg/dL (9.8-20.1); Calc. Creatinine Clearance 17 mL/min (70-130); Calcium 7.8 mg/dL (7.8-10.44); Carbon Dioxide 16 mmol/L (23-31); Chloride 110 mmol/L (98-107); Glucose 79 mg/dL (83-110); Potassium 4.9 mmol/L (3.5-5.1); Sodium 137 mmol/L (136-145)
[2025-03-07] MEDS ORDERED: fentaNYL PF 100 MCG/2 ML SYRINGE ONE (14:44)
[2025-03-07] MEDS ORDERED: PROPOFOL 20 ML ONE ×2 (14:45→15:03)
[2025-03-07] MEDS ORDERED: Rocuronium Bromide 10 MG/ML (10ML VIAL) ONE (14:45)
[2025-03-07] MEDS ORDERED: Lidocaine 1% PF 5 ML VIAL ONE (14:45)
[2025-03-07] MEDS ORDERED: Etomidate 40 MG (20 mL) VIAL ONE (15:34)
[2025-03-07] MEDS ORDERED: PHENYLEPHRINE-NS 100 MCG/ML 10 ML SYRINGE ONE (16:14)
[2025-03-07 16:42] LABS: ALT (SGPT) 82 U/L (Less than 34); AST (SGOT) 355 U/L (11-34); Albumin 1.8 g/dL (3.1-4.5); Alkaline Phosphatase 259 U/L (40-110); Bilirubin, Direct 2.2 mg/dL (0.1-0.3); Bilirubin, Total 2.6 mg/dL (0.3-1.2)
[2025-03-07] MEDS ORDERED: Ondansetron PF 4 MG/2 ML Vial ONE (16:55)
[2025-03-07] MEDS ORDERED: SUGAMMADEX SODIUM 200 MG/2 ML VIAL ONE ×2 (16:55→17:00)
[2025-03-07] MEDS: Albumin 25% 25 GM (100 mL) BOT IVPB SCH ×2 (18:18→22:04)
[2025-03-07] MEDS ORDERED: Hydrocortisone Sod Succ/PF 100 mg/2 ml Vial ONE (18:52)
[2025-03-07] MEDS: Hydrocortisone Sod Succ/PF 100 mg/2 ml Vial IVP SCH (18:54)
[2025-03-07 19:29] LABS: Hematocrit 26.9 % (36.0-47.0); Hemoglobin 8.7 g/dL (12.0-16.0)
[2025-03-07] MEDS ORDERED: Glucagon 1 MG/ML KIT IM PRN (23:19)
[2025-03-07] MEDS: Norepinephrine 8 MG/0.9% NS 250 ML IVPB SCH (23:32)
[2025-03-08] MEDS: Dextrose 50% Abboject 50 ML SYRINGE SLOW IVP PRN (00:20)
[2025-03-08 05:58] LABS: INR-International Normal Ratio 2.3; PTT 79.7 sec (22.9-36.1); Prothrombin Time 25.1 sec (12.0-14.7)
[2025-03-08 06:04] LABS: Hematocrit 25.2 % (36.0-47.0); Hemoglobin 8.6 g/dL (12.0-16.0); Mean Corpuscular Hemoglobin 33.9 pg (27.0-31.0); Mean Corpuscular Volume 99.2 fL (78.0-98.0); Platelet Count 140 10x3/uL (130-400); Red Blood Cell (RBC) Count 2.54 mill/uL (4.20-5.40); White Blood Cell (WBC) Count 5.32 10x3/uL (4.8-10.8)
[2025-03-08 07:09] LABS: ALT (SGPT) 92 U/L (Less than 34); AST (SGOT) 431 U/L (11-34); Albumin 2.2 g/dL (3.1-4.5); Alkaline Phosphatase 291 U/L (40-110); Anion Gap 19 mmol/L (10-20); BUN (Urea Nitrogen) 55 mg/dL (9.8-20.1); Bilirubin, Total 3.9 mg/dL (0.3-1.2); Calc. Creatinine Clearance 14 mL/min (70-130); Calcium 7.3 mg/dL (7.8-10.44); Carbon Dioxide 13 mmol/L (23-31); Chloride 109 mmol/L (98-107); Globulin 3.2 g/dL (2.4-3.5); Glucose 154 mg/dL (83-110); Potassium 5.1 mmol/L (3.5-5.1); Sodium 136 mmol/L (136-145)
[2025-03-08 08:37] LABS: Anisocytosis MODERATE=16-30 cells HPF (0-5); Giant Platelets 1.0 % (0-5); Macrocytosis SLIGHT = 6-15 cells HPF (0-5); Platelet Adequacy Comment Platelets Normal; Polychromasia SLIGHT = 2-3 cells HPF (0-2); Schistocytes SLIGHT = 2-5 cells HPF (0-1); Smudge Cells 3.9 %; Target Cells SLIGHT = 2-5 cells HPF (0-1); Toxic Granulation SLIGHT
[2025-03-08] MEDS: Mupirocin 1 GM TUBE NASAL DECOLONIZATION NASAL SCH (09:24)
[2025-03-08] MEDS: Hydrocortisone Sod Succ/PF 100 mg/2 ml Vial IVP SCH (09:24)
[2025-03-08] MEDS: Nitroglycerin 50 MG/250 ML BOT 0 ML ONE (10:50)
[2025-03-08 15:21] LABS: INR-International Normal Ratio 2.1; Prothrombin Time 23.3 sec (12.0-14.7)
[2025-03-08 15:23] LABS: PTT 70.0 sec (22.9-36.1)
[2025-03-08] MEDS ORDERED: Sodium Bicarbonate 2.5 MEQ/5 ML SDV ONE (16:46)
[2025-03-08] MEDS ORDERED: Lidocaine 1% w/Epinephrine 1:100K 20 ML VIAL ONE ×2 (16:46→18:02)
[2025-03-08] MEDS ORDERED: Iopamidol 100 ML FS ONE (16:47)
[2025-03-08] MEDS ORDERED: Lidocaine 1% PF 5 ML VIAL ONE (16:47)
[2025-03-08] MEDS: Vancomycin 1 GM in Sodium Chloride 0.9% 250 ML 250 ML IVPB ONE (18:21)
[2025-03-08] MEDS: Albumin 25% 25 GM (100 mL) BOT IVPB SCH (18:50)
[2025-03-08] MEDS: Vancomycin 1 GM in Premix 1 BAG IVPB SCH (18:55)
[2025-03-08 21:28] LABS: Protein, Urine Random Quant 127 mg/dL (1-14); Sodium, Urine Less than 20 mmol/L (Not Available); Urea Nitrogen, Random Urine 339 mg/dl
[2025-03-09 04:44] LABS: #Basophils Less than 0.03 10x3/uL (0.0-0.2); #Eosinophils Less than 0.03 10x3/uL (0.0-0.7); #Monocytes 0.15 10x3/uL (0.11-0.59); #Neutrophils 3.83 10x3/uL (1.40-6.50); %Basophils 0.2 % (0.0-1.0); %Eosinophils 0.0 % (0.0-10.0); %Lymphocytes 7.1 % (21.0-51.0); %Monocytes 3.4 % (0.0-10.0); %Neutrophils 88.2 % (42.0-75.0); Hematocrit 21.0 % (36.0-47.0); Hemoglobin 7.3 g/dL (12.0-16.0); Mean Corpuscular Hemoglobin 33.8 pg (27.0-31.0); Mean Corpuscular Volume 97.2 fL (78.0-98.0); Platelet Count 148 10x3/uL (130-400); Red Blood Cell (RBC) Count 2.16 mill/uL (4.20-5.40); White Blood Cell (WBC) Count 4.35 10x3/uL (4.8-10.8)
[2025-03-09 05:08] LABS: INR-International Normal Ratio 2.2; Prothrombin Time 24.4 sec (12.0-14.7)
[2025-03-09 05:11] LABS: PTT 73.2 sec (22.9-36.1)
[2025-03-09 05:27] LABS: ALT (SGPT) 89 U/L (Less than 34); AST (SGOT) 437 U/L (11-34); Albumin 3.2 g/dL (3.1-4.5); Alkaline Phosphatase 257 U/L (40-110); Anion Gap 23 mmol/L (10-20); BUN (Urea Nitrogen) 59 mg/dL (9.8-20.1); Bilirubin, Total 3.9 mg/dL (0.3-1.2); Calc. Creatinine Clearance 12 mL/min (70-130); Calcium 6.8 mg/dL (7.8-10.44); Carbon Dioxide 17 mmol/L (23-31); Chloride 101 mmol/L (98-107); Globulin 2.8 g/dL (2.4-3.5); Glucose 145 mg/dL (83-110); Potassium 4.5 mmol/L (3.5-5.1); Sodium 136 mmol/L (136-145)
[2025-03-09] MEDS: CALCIUM GLUC 1 GM/NS 50 ML 1 GM in Premix 1 BAG IVPB SCH (06:36)
[2025-03-09] MEDS: prednisoLONE 15 MG/5 ML UDCUP PO SCH (09:27)
[2025-03-09] MEDS: FLU (Fluad Triv) 25-26 (65UP)PF 45 MCG/0.5 ML Syringe IM ONE (19:29)
[2025-03-10 05:45] LABS: ALT (SGPT) 87 U/L (Less than 34); AST (SGOT) 455 U/L (11-34); Albumin 3.2 g/dL (3.1-4.5); Alkaline Phosphatase 260 U/L (40-110); Anion Gap 19 mmol/L (10-20); BUN (Urea Nitrogen) 54 mg/dL (9.8-20.1); Bilirubin, Total 3.6 mg/dL (0.3-1.2); Calc. Creatinine Clearance 12 mL/min (70-130); Calcium 6.8 mg/dL (7.8-10.44); Carbon Dioxide 21 mmol/L (23-31); Chloride 98 mmol/L (98-107); Globulin 2.6 g/dL (2.4-3.5); Glucose 110 mg/dL (83-110); Potassium 4.1 mmol/L (3.5-5.1); Sodium 134 mmol/L (136-145)
[2025-03-10 05:51] LABS: INR-International Normal Ratio 2.1; Prothrombin Time 23.5 sec (12.0-14.7)
[2025-03-10 05:53] LABS: PTT 80.8 sec (22.9-36.1)
[2025-03-10 06:05] LABS: #Basophils Less than 0.03 10x3/uL (0.0-0.2); #Eosinophils Less than 0.03 10x3/uL (0.0-0.7); #Monocytes 0.10 10x3/uL (0.11-0.59); #Neutrophils 3.30 10x3/uL (1.40-6.50); %Basophils 0.3 % (0.0-1.0); %Eosinophils 0.0 % (0.0-10.0); %Lymphocytes 7.2 % (21.0-51.0); %Monocytes 2.7 % (0.0-10.0); %Neutrophils 88.2 % (42.0-75.0); Hematocrit 20.3 % (36.0-47.0); Hemoglobin 7.2 g/dL (12.0-16.0); Mean Corpuscular Hemoglobin 33.8 pg (27.0-31.0); Mean Corpuscular Volume 95.3 fL (78.0-98.0); Platelet Count 118 10x3/uL (130-400); Red Blood Cell (RBC) Count 2.13 mill/uL (4.20-5.40); White Blood Cell (WBC) Count 3.74 10x3/uL (4.8-10.8)
[2025-03-10] MEDS: Albumin 25% 25 GM (100 mL) BOT IVPB SCH ×2 (07:04→13:20)
[2025-03-10] MEDS: CALCIUM GLUC 1 GM/NS 50 ML 1 GM in Premix 1 BAG IVPB SCH (09:10)
[2025-03-11 03:59] VITALS: BMI 33.5
[2025-03-11 07:22] LABS: INR-International Normal Ratio 2.2; Prothrombin Time 24.4 sec (12.0-14.7)
[2025-03-11 07:24] LABS: PTT 76.1 sec (22.9-36.1)
[2025-03-11 07:40] LABS: ALT (SGPT) 82 U/L (Less than 34); AST (SGOT) 451 U/L (11-34); Albumin 3.8 g/dL (3.1-4.5); Alkaline Phosphatase 268 U/L (40-110); Anion Gap 19 mmol/L (10-20); BUN (Urea Nitrogen) 60 mg/dL (9.8-20.1); Bilirubin, Total 3.7 mg/dL (0.3-1.2); Calc. Creatinine Clearance 11 mL/min (70-130); Calcium 7.0 mg/dL (7.8-10.44); Carbon Dioxide 19 mmol/L (23-31); Chloride 97 mmol/L (98-107); Globulin 2.3 g/dL (2.4-3.5); Glucose 109 mg/dL (83-110); Potassium 4.1 mmol/L (3.5-5.1); Sodium 131 mmol/L (136-145)
[2025-03-11 09:27] LABS: #Basophils Less than 0.03 10x3/uL (0.0-0.2); #Eosinophils Less than 0.03 10x3/uL (0.0-0.7); #Monocytes 0.08 10x3/uL (0.11-0.59); #Neutrophils 2.87 10x3/uL (1.40-6.50); %Basophils 0.6 % (0.0-1.0); %Eosinophils 0.0 % (0.0-10.0); %Lymphocytes 14.6 % (21.0-51.0); %Monocytes 2.3 % (0.0-10.0); %Neutrophils 80.8 % (42.0-75.0); Hematocrit 21.6 % (36.0-47.0); Hemoglobin 7.2 g/dL (12.0-16.0); Mean Corpuscular Hemoglobin 33.0 pg (27.0-31.0); Mean Corpuscular Volume 99.1 fL (78.0-98.0); Platelet Count 92 10x3/uL (130-400); Red Blood Cell (RBC) Count 2.18 mill/uL (4.20-5.40); White Blood Cell (WBC) Count 3.55 10x3/uL (4.8-10.8)
[2025-03-11] MEDS: Ergocalciferol 1.25 MG(50,000 UNITS) CAP PO SCH (09:34)
[2025-03-11] MEDS: Albumin 25% 25 GM (100 mL) BOT IVPB SCH (11:32)
[2025-03-11] MEDS: Folic Acid/Vit B Comp W-C PO SCH (11:33)
[2025-03-11] MEDS: Pantoprazole 40 MG DR.TAB PO SCH (11:33)
[2025-03-11] MEDS: Senokot S 8.6-50 MG TAB PO SCH ×2 (11:34→19:49)
[2025-03-11 14:51] LABS: Bacteria/HPF 3+ HPF (None Seen); Glucose, Urine (Dipstick) Normal (Negative); Leukocyte 500 Leu/uL (Negative); Protein, Urine (Dipstick) 100 mg/dL (Neg-Trace); RBC/HPF 21-50 HPF (0-3); Specific Gravity, Urine 1.009 (1.002-1.036); WBC/HPF Greater than 50 HPF (0-3); Yeast-Budding 2+ HPF (None Seen)
[2025-03-11 14:59] LABS: Yeast-Hyphae 1+ HPF (None Seen)
[2025-03-11] MEDS: EPOETIN ALFA-EPBX (ESRD) 10,000 UNITS/ML VIAL SC SCH (17:30)
[2025-03-12 06:07] LABS: #Basophils Less than 0.03 10x3/uL (0.0-0.2); #Eosinophils Less than 0.03 10x3/uL (0.0-0.7); #Monocytes 0.09 10x3/uL (0.11-0.59); #Neutrophils 3.67 10x3/uL (1.40-6.50); %Basophils 0.2 % (0.0-1.0); %Eosinophils 0.0 % (0.0-10.0); %Lymphocytes 6.4 % (21.0-51.0); %Monocytes 2.2 % (0.0-10.0); %Neutrophils 90.5 % (42.0-75.0); Hematocrit 22.5 % (36.0-47.0); Hemoglobin 7.6 g/dL (12.0-16.0); Mean Corpuscular Hemoglobin 33.0 pg (27.0-31.0); Mean Corpuscular Volume 97.8 fL (78.0-98.0); Platelet Count 80 10x3/uL (130-400); Red Blood Cell (RBC) Count 2.30 mill/uL (4.20-5.40); White Blood Cell (WBC) Count 4.06 10x3/uL (4.8-10.8)
[2025-03-12 06:16] LABS: INR-International Normal Ratio 2.2; Prothrombin Time 24.7 sec (12.0-14.7)
[2025-03-12 06:17] LABS: PTT 70.0 sec (22.9-36.1)
[2025-03-12 06:34] LABS: ALT (SGPT) 86 U/L (Less than 34); AST (SGOT) 488 U/L (11-34); Albumin 4.3 g/dL (3.1-4.5); Alkaline Phosphatase 218 U/L (40-110); Anion Gap 20 mmol/L (10-20); BUN (Urea Nitrogen) 69 mg/dL (9.8-20.1); Bilirubin, Total 4.1 mg/dL (0.3-1.2); Calc. Creatinine Clearance 12 mL/min (70-130); Calcium 6.9 mg/dL (7.8-10.44); Carbon Dioxide 19 mmol/L (23-31); Chloride 97 mmol/L (98-107); Globulin 2.1 g/dL (2.4-3.5); Glucose 111 mg/dL (83-110); Potassium 4.2 mmol/L (3.5-5.1); Sodium 132 mmol/L (136-145)
[2025-03-12] MEDS: Folic Acid/Vit B Comp W-C PO SCH (09:11)
[2025-03-12] MEDS: Pantoprazole 40 MG DR.TAB PO SCH (09:12)
[2025-03-12] MEDS: CALCIUM GLUC 1 GM/NS 50 ML 1 GM in Premix 1 BAG IVPB SCH (10:26)
[2025-03-12] MEDS: Calcium Carbonate 500 MG ChewTAB PO SCH (21:50)
[2025-03-13] MEDS: Calcitriol 0.25 MCG CAP PO SCH (10:33)
[2025-03-13 11:12] LABS: Magnesium 1.9 mg/dL (1.6-2.6)
[2025-03-13 11:14] LABS: INR-International Normal Ratio 2.0; Prothrombin Time 22.4 sec (12.0-14.7)
[2025-03-13 11:15] LABS: PTT 64.1 sec (22.9-36.1)
[2025-03-13 11:17] LABS: ALT (SGPT) 116 U/L (Less than 34); AST (SGOT) 672 U/L (11-34); Albumin 3.5 g/dL (3.1-4.5); Alkaline Phosphatase 205 U/L (40-110); Anion Gap 20 mmol/L (10-20); BUN (Urea Nitrogen) 75 mg/dL (9.8-20.1); Bilirubin, Total 4.8 mg/dL (0.3-1.2); Calc. Creatinine Clearance 13 mL/min (70-130); Calcium 6.5 mg/dL (7.8-10.44); Carbon Dioxide 19 mmol/L (23-31); Chloride 95 mmol/L (98-107); Globulin 2.3 g/dL (2.4-3.5); Glucose 132 mg/dL (83-110); Potassium 4.2 mmol/L (3.5-5.1); Sodium 130 mmol/L (136-145)
[2025-03-13 12:06] LABS: Hematocrit 23.3 % (36.0-47.0); Hemoglobin 8.0 g/dL (12.0-16.0); Mean Corpuscular Hemoglobin 33.6 pg (27.0-31.0); Mean Corpuscular Volume 97.9 fL (78.0-98.0); Platelet Count 84 10x3/uL (130-400); Red Blood Cell (RBC) Count 2.38 mill/uL (4.20-5.40); White Blood Cell (WBC) Count 4.76 10x3/uL (4.8-10.8)
[2025-03-13 12:44] LABS: Anisocytosis MODERATE=16-30 cells HPF (0-5); Platelet Adequacy Comment Platelets Decreased; Polychromasia MODERATE = 3-4 cells HPF (0-2); Schistocytes SLIGHT = 2-5 cells HPF (0-1); Smudge Cells 5.0 %; Toxic Granulation SLIGHT
[2025-03-13] MEDS: Albumin 25% 25 GM (100 mL) BOT IVPB SCH (13:42)
[2025-03-14 05:20] LABS: ALT (SGPT) 121 U/L (Less than 34); AST (SGOT) 676 U/L (11-34); Albumin 3.8 g/dL (3.1-4.5); Alkaline Phosphatase 168 U/L (40-110); Anion Gap 21 mmol/L (10-20); BUN (Urea Nitrogen) 75 mg/dL (9.8-20.1); Bilirubin, Total 5.5 mg/dL (0.3-1.2); Calc. Creatinine Clearance 13 mL/min (70-130); Calcium 7.4 mg/dL (7.8-10.44); Carbon Dioxide 22 mmol/L (23-31); Chloride 94 mmol/L (98-107); Globulin 2.1 g/dL (2.4-3.5); Glucose 113 mg/dL (83-110); Potassium 3.9 mmol/L (3.5-5.1); Sodium 133 mmol/L (136-145); Uric Acid 9.2 mg/dL (2.5-6.2)
[2025-03-14 05:22] LABS: INR-International Normal Ratio 2.1; Prothrombin Time 23.6 sec (12.0-14.7)
[2025-03-14 05:23] LABS: PTT 53.4 sec (22.9-36.1)
[2025-03-14 06:38] LABS: Hematocrit 21.9 % (36.0-47.0); Hemoglobin 7.8 g/dL (12.0-16.0); Mean Corpuscular Hemoglobin 33.5 pg (27.0-31.0); Mean Corpuscular Volume 94.0 fL (78.0-98.0); Platelet Count 81 10x3/uL (130-400); Red Blood Cell (RBC) Count 2.33 mill/uL (4.20-5.40); White Blood Cell (WBC) Count 3.95 10x3/uL (4.8-10.8)
[2025-03-14 09:18] LABS: Anisocytosis MODERATE=16-30 cells HPF (0-5); Platelet Adequacy Comment Platelets Decreased; Polychromasia SLIGHT = 2-3 cells HPF (0-2); Schistocytes SLIGHT = 2-5 cells HPF (0-1); Smudge Cells 9.1 %
[2025-03-14] MEDS ORDERED: Fleet Saline Enema 133 ML BOT PR SCH (11:30)
[2025-03-14] MEDS: Albumin 25% 25 GM (100 mL) BOT IVPB SCH (12:24)
[2025-03-14] MEDS: Bisacodyl 10 MG SUPP PR SCH (12:24)
[2025-03-14] MEDS: Pantoprazole 40 MG DR.TAB PO SCH (14:39)
[2025-03-14 14:48] LABS: Uric Acid 8.9 mg/dL (2.5-6.2)
[2025-03-14] MEDS: Fleet Saline Enema 133 ML BOT PR SCH ×2 (18:37→21:47)
[2025-03-14 20:27] LABS: Hematocrit 21.7 % (36.0-47.0); Hemoglobin 7.5 g/dL (12.0-16.0)
[2025-03-14] MEDS ORDERED: Bisacodyl 10 MG SUPP PR SCH (21:00)
[2025-03-14] MEDS: Pantoprazole 40 MG VIAL IVP SCH ×2 (22:10)
[2025-03-15 05:04] LABS: #Basophils 0.03 10x3/uL (0.0-0.2); #Eosinophils Less than 0.03 10x3/uL (0.0-0.7); #Monocytes 0.10 10x3/uL (0.11-0.59); #Neutrophils 4.31 10x3/uL (1.40-6.50); %Basophils 0.6 % (0.0-1.0); %Eosinophils 0.0 % (0.0-10.0); %Lymphocytes 5.6 % (21.0-51.0); %Monocytes 2.1 % (0.0-10.0); %Neutrophils 89.8 % (42.0-75.0); Hematocrit 21.6 % (36.0-47.0); Hemoglobin 7.6 g/dL (12.0-16.0); Mean Corpuscular Hemoglobin 33.6 pg (27.0-31.0); Mean Corpuscular Volume 95.6 fL (78.0-98.0); Platelet Count 81 10x3/uL (130-400); Red Blood Cell (RBC) Count 2.26 mill/uL (4.20-5.40); White Blood Cell (WBC) Count 4.80 10x3/uL (4.8-10.8)
[2025-03-15 05:06] LABS: INR-International Normal Ratio 2.2; PTT 53.6 sec (22.9-36.1); Prothrombin Time 24.8 sec (12.0-14.7)
[2025-03-15 05:22] LABS: ALT (SGPT) 118 U/L (Less than 34); AST (SGOT) 586 U/L (11-34); Albumin 4.4 g/dL (3.1-4.5); Alkaline Phosphatase 131 U/L (40-110); Anion Gap 25 mmol/L (10-20); BUN (Urea Nitrogen) 79 mg/dL (9.8-20.1); Bilirubin, Total 7.2 mg/dL (0.3-1.2); Calc. Creatinine Clearance 15 mL/min (70-130); Calcium 8.2 mg/dL (7.8-10.44); Carbon Dioxide 22 mmol/L (23-31); Chloride 91 mmol/L (98-107); Globulin 1.9 g/dL (2.4-3.5); Glucose 142 mg/dL (83-110); Potassium 4.0 mmol/L (3.5-5.1); Sodium 134 mmol/L (136-145); Uric Acid 5.4 mg/dL (2.5-6.2)
[2025-03-15] MEDS ORDERED: Pantoprazole 40 MG DR.TAB PO SCH (09:00)
[2025-03-15] MEDS: Ondansetron PF 4 MG/2 ML Vial IVP PRN (10:25)
[2025-03-15] MEDS: Pantoprazole 40 MG VIAL IVP SCH (11:46)
[2025-03-15 12:19] LABS: Hematocrit 18.8 % (36.0-47.0); Hemoglobin 6.7 g/dL (12.0-16.0)
[2025-03-15] MEDS ORDERED: Furosemide 40 MG (4 mL) VIAL SLOW IVP SCH (13:45)
[2025-03-15] MEDS ORDERED: Albumin 25% 25 GM (100 mL) BOT IVPB SCH (14:00)
[2025-03-15] MEDS ORDERED: Pantoprazole 40 MG VIAL IVP SCH (21:00)
[2025-03-15] MEDS ORDERED: Bisacodyl 10 MG SUPP PR SCH (21:00)
[2025-03-16] MEDS ORDERED: [UNRECOGNIZED DRUG - OTHER] IVPB SCH (00:01)
[2025-03-16] MEDS ORDERED: RITUXIMAB ARRX IVPB SCH (00:01)
[2025-03-16] MEDS ORDERED: diphenhydrAMINE 50 MG/ML VIAL IVP SCH (00:01)
[2025-03-17 11:14] LABS: #Basophils 0.03 10x3/uL (0.0-0.2); #Eosinophils 0.09 10x3/uL (0.0-0.7); #Monocytes 0.18 10x3/uL (0.11-0.59); #Neutrophils 4.08 10x3/uL (1.40-6.50); %Basophils 0.6 % (0.0-1.0); %Eosinophils 1.7 % (0.0-10.0); %Lymphocytes 13.2 % (21.0-51.0); %Monocytes 3.5 % (0.0-10.0); %Neutrophils 78.9 % (42.0-75.0); Hematocrit 20.7 % (36.0-47.0); Hemoglobin 7.1 g/dL (12.0-16.0); Mean Corpuscular Hemoglobin 33.5 pg (27.0-31.0); Mean Corpuscular Volume 97.6 fL (78.0-98.0); Platelet Count 70 10x3/uL (130-400); Red Blood Cell (RBC) Count 2.12 mill/uL (4.20-5.40); White Blood Cell (WBC) Count 5.17 10x3/uL (4.8-10.8)
[2025-03-17 11:21] LABS: Anion Gap 17 mmol/L (10-20); BUN (Urea Nitrogen) 118 mg/dL (9.8-20.1); Calc. Creatinine Clearance 15 mL/min (70-130); Calcium 8.8 mg/dL (7.8-10.44); Carbon Dioxide 29 mmol/L (23-31); Chloride 93 mmol/L (98-107); Glucose 100 mg/dL (83-110); Potassium 3.1 mmol/L (3.5-5.1); Sodium 136 mmol/L (136-145)
[2025-03-17 11:35] LABS: Anisocytosis MODERATE=16-30 cells HPF (0-5); Macrocytosis SLIGHT = 6-15 cells HPF (0-5); Platelet Adequacy Comment Platelets Decreased; Polychromasia MARKED = >4 cells HPF (0-2); Schistocytes SLIGHT = 2-5 cells HPF (0-1)
[2025-03-17 12:23] LABS: ALT (SGPT) 130 U/L (Less than 34); AST (SGOT) 463 U/L (11-34); Albumin 3.2 g/dL (3.1-4.5); Alkaline Phosphatase 112 U/L (40-110); Bilirubin, Direct 5.4 mg/dL (0.1-0.3); Bilirubin, Total 8.0 mg/dL (0.3-1.2)
[2025-03-17] MEDS: Lactulose 20 GM (30 mL) UDCUP PO SCH (16:54)
[2025-03-17] MEDS: Albumin 25% 25 GM (100 mL) BOT IVPB SCH (17:51)
[2025-03-18 09:06] LABS: Hematocrit 19.4 % (36.0-47.0); Hemoglobin 6.4 g/dL (12.0-16.0); Mean Corpuscular Hemoglobin 33.5 pg (27.0-31.0); Mean Corpuscular Volume 101.6 fL (78.0-98.0); Platelet Count 70 10x3/uL (130-400); Red Blood Cell (RBC) Count 1.91 mill/uL (4.20-5.40); White Blood Cell (WBC) Count 5.07 10x3/uL (4.8-10.8)
[2025-03-18] MEDS: Pantoprazole 40 MG DR.TAB PO SCH (09:13)
[2025-03-18 09:46] LABS: #Basophils 0.05 10x3/uL (0.0-0.2); #Eosinophils 0.06 10x3/uL (0.0-0.7); #Monocytes 0.20 10x3/uL (0.11-0.59); #Neutrophils 3.71 10x3/uL (1.40-6.50); %Basophils 1.0 % (0.0-1.0); %Eosinophils 1.2 % (0.0-10.0); %Lymphocytes 16.8 % (21.0-51.0); %Monocytes 3.9 % (0.0-10.0); %Neutrophils 73.2 % (42.0-75.0); Macrocytosis MODERATE=16-30 cells (100X) (0-5/hpf); Ovalocytes MODERATE= 6-15 cells (100X) (0-1/hpf); Plasma Cells 0 % (0-0); Platelet Adequacy Comment Appears Decreased; Target Cells SLIGHT = 2-5 cells (100X) (0-1/hpf)
[2025-03-18 10:01] LABS: ALT (SGPT) 109 U/L (Less than 34); AST (SGOT) 349 U/L (11-34); Albumin 3.6 g/dL (3.1-4.5); Alkaline Phosphatase 89 U/L (40-110); Anion Gap 23 mmol/L (10-20); BUN (Urea Nitrogen) 124 mg/dL (9.8-20.1); Bilirubin, Direct 5.1 mg/dL (0.1-0.3); Bilirubin, Total 8.2 mg/dL (0.3-1.2); Calc. Creatinine Clearance 15 mL/min (70-130); Calcium 9.2 mg/dL (7.8-10.44); Carbon Dioxide 23 mmol/L (23-31); Chloride 94 mmol/L (98-107); Glucose 97 mg/dL (83-110); Potassium 3.5 mmol/L (3.5-5.1); Sodium 136 mmol/L (136-145)
[2025-03-18] MEDS ORDERED: Ondansetron PF 4 MG/2 ML Vial IVP PRN (13:43)
[2025-03-19 05:12] LABS: #Basophils 0.06 10x3/uL (0.0-0.2); #Eosinophils 0.04 10x3/uL (0.0-0.7); #Monocytes 0.22 10x3/uL (0.11-0.59); #Neutrophils 6.26 10x3/uL (1.40-6.50); %Basophils 0.8 % (0.0-1.0); %Eosinophils 0.5 % (0.0-10.0); %Lymphocytes 7.7 % (21.0-51.0); %Monocytes 3.0 % (0.0-10.0); %Neutrophils 85.1 % (42.0-75.0); Hematocrit 25.2 % (36.0-47.0); Hemoglobin 8.6 g/dL (12.0-16.0); Mean Corpuscular Hemoglobin 32.7 pg (27.0-31.0); Mean Corpuscular Volume 95.8 fL (78.0-98.0); Platelet Count 51 10x3/uL (130-400); Red Blood Cell (RBC) Count 2.63 mill/uL (4.20-5.40); White Blood Cell (WBC) Count 7.36 10x3/uL (4.8-10.8)
[2025-03-19 05:46] LABS: BUN (Urea Nitrogen) 135 mg/dL (9.8-20.1)
[2025-03-19 06:00] LABS: ALT (SGPT) 116 U/L (Less than 34); AST (SGOT) 317 U/L (11-34); Albumin 3.6 g/dL (3.1-4.5); Alkaline Phosphatase 102 U/L (40-110); Anion Gap 20 mmol/L (10-20); Bilirubin, Total 10.4 mg/dL (0.3-1.2); Calc. Creatinine Clearance 16 mL/min (70-130); Calcium 9.4 mg/dL (7.8-10.44); Carbon Dioxide 25 mmol/L (23-31); Chloride 92 mmol/L (98-107); Globulin 1.9 g/dL (2.4-3.5); Glucose 147 mg/dL (83-110); Potassium 3.6 mmol/L (3.5-5.1); Sodium 133 mmol/L (136-145)
[2025-03-19] MEDS: Albumin 25% 25 GM (100 mL) BOT IVPB SCH (12:33)
[2025-03-20 05:26] LABS: ALT (SGPT) 104 U/L (Less than 34); AST (SGOT) 248 U/L (11-34); Albumin 4.1 g/dL (3.1-4.5); Alkaline Phosphatase 88 U/L (40-110); Anion Gap 25 mmol/L (10-20); Bilirubin, Total 11.1 mg/dL (0.3-1.2); Calc. Creatinine Clearance 16 mL/min (70-130); Calcium 9.6 mg/dL (7.8-10.44); Carbon Dioxide 22 mmol/L (23-31); Chloride 96 mmol/L (98-107); Globulin 1.7 g/dL (2.4-3.5); Glucose 151 mg/dL (83-110); Potassium 3.7 mmol/L (3.5-5.1); Sodium 139 mmol/L (136-145)
[2025-03-20 05:35] LABS: BUN (Urea Nitrogen) 142 mg/dL (9.8-20.1)
[2025-03-20 06:34] LABS: Anisocytosis MODERATE=16-30 cells HPF (0-5); Macrocytosis MODERATE=16-30 cells HPF (0-5); Platelet Adequacy Comment Significant Decrease; Polychromasia SLIGHT = 2-3 cells HPF (0-2); Reflex for Review?? YES
[2025-03-20 06:43] LABS: %Basophils 0.5 % (0.0-1.0); %Eosinophils 0.0 % (0.0-10.0); %Lymphocytes 5.2 % (21.0-51.0); %Monocytes 3.2 % (0.0-10.0); %Neutrophils 89.4 % (42.0-75.0); Hematocrit 23.4 % (36.0-47.0); Hemoglobin 8.3 g/dL (12.0-16.0); Mean Corpuscular Hemoglobin 33.3 pg (27.0-31.0); Mean Corpuscular Volume 94.0 fL (78.0-98.0); Platelet Count 28 10x3/uL (130-400); Red Blood Cell (RBC) Count 2.49 mill/uL (4.20-5.40); White Blood Cell (WBC) Count 6.29 10x3/uL (4.8-10.8)
[2025-03-20 06:52] LABS: #Basophils 0.03 10x3/uL (0.0-0.2); #Eosinophils Less than 0.03 10x3/uL (0.0-0.7); #Monocytes 0.20 10x3/uL (0.11-0.59); #Neutrophils 5.62 10x3/uL (1.40-6.50)
[2025-03-20 10:37] LABS: Uric Acid 2.2 mg/dL (2.5-6.2)
[2025-03-20 15:25] LABS: Sodium, Urine 23.0 mmol/L (Not Available)
[2025-03-20] MEDS: Albumin 25% 25 GM (100 mL) BOT IVPB SCH (16:12)
[2025-03-21 05:25] LABS: BUN (Urea Nitrogen) 132 mg/dL (9.8-20.1)
[2025-03-21 05:40] LABS: ALT (SGPT) 100 U/L (Less than 34); AST (SGOT) 224 U/L (11-34); Albumin 4.2 g/dL (3.1-4.5); Alkaline Phosphatase 99 U/L (40-110); Anion Gap 24 mmol/L (10-20); Bilirubin, Total 11.8 mg/dL (0.3-1.2); Calc. Creatinine Clearance 19 mL/min (70-130); Calcium 9.6 mg/dL (7.8-10.44); Carbon Dioxide 24 mmol/L (23-31); Chloride 95 mmol/L (98-107); Globulin 1.7 g/dL (2.4-3.5); Glucose 149 mg/dL (83-110); Potassium 3.2 mmol/L (3.5-5.1); Sodium 140 mmol/L (136-145)
[2025-03-21] MEDS: Potassium Chloride 20 MEQ in Premix 1 BAG IVPB SCH (06:25)
[2025-03-21 08:21] LABS: Magnesium 1.9 mg/dL (1.6-2.6)
[2025-03-21 15:09] VITALS: BMI 35.5
[2025-03-21] MEDS: Albumin 25% 25 GM (100 mL) BOT IVPB SCH (21:59)
[2025-03-22 08:58] LABS: ALT (SGPT) 94 U/L (Less than 34); AST (SGOT) 219 U/L (11-34); Albumin 4.1 g/dL (3.1-4.5); Alkaline Phosphatase 108 U/L (40-110); Anion Gap 23 mmol/L (10-20); Bilirubin, Total 12.4 mg/dL (0.3-1.2); Calc. Creatinine Clearance 19 mL/min (70-130); Calcium 9.5 mg/dL (7.8-10.44); Carbon Dioxide 28 mmol/L (23-31); Chloride 95 mmol/L (98-107); Globulin 1.2 g/dL (2.4-3.5); Glucose 112 mg/dL (83-110); Potassium 3.2 mmol/L (3.5-5.1); Sodium 143 mmol/L (136-145)
[2025-03-22 09:01] VITALS: BP 117/71; TEMP 97.2
[2025-03-22 09:06] LABS: BUN (Urea Nitrogen) 136 mg/dL (9.8-20.1)
== END 2025-03-22 14:19 | DRG 823 ==
LOC: ERS 13:14 → ERHOLD 17:07 → OBS 21:03 → CCU 03-07 19:38 → SURG B 03-10 14:10 → MSONC 03-14 16:52
PROVIDERS: ADMIT Internal Medicine; ATTEND Hospitalist
PROC: 3E02340 Introduction of Influenza Vaccine into Muscle, Percutaneous Approach (ICD-10-PCS; 2025-03-05)
PROC: 0TBB8ZZ Excision of Bladder, Via Natural or Artificial Opening Endoscopic (ICD-10-PCS; principal; 2025-03-07)
PROC: 05HB33Z Insertion of Infusion Device into Right Basilic Vein, Percutaneous Approach (ICD-10-PCS; 2025-03-07)
PROC: 30233J1 Transfusion of Nonautologous Serum Albumin into Peripheral Vein, Percutaneous Approach (ICD-10-PCS; 2025-03-07)
PROC: 0T943ZZ Drainage of Left Kidney Pelvis, Percutaneous Approach (ICD-10-PCS; 2025-03-08)
PROC: 30233K1 Transfusion of Nonautologous Frozen Plasma into Peripheral Vein, Percutaneous Approach (ICD-10-PCS; 2025-03-08)
PROC: 0T9B70Z Drainage of Bladder with Drainage Device, Via Natural or Artificial Opening (ICD-10-PCS; 2025-03-08)
PROC: 05HY33Z Insertion of Infusion Device into Upper Vein, Percutaneous Approach (ICD-10-PCS; 2025-03-08)
PROC: 3E043XZ Introduction of Vasopressor into Central Vein, Percutaneous Approach (ICD-10-PCS; 2025-03-08)
PROC: 3E033XZ Introduction of Vasopressor into Peripheral Vein, Percutaneous Approach (ICD-10-PCS; 2025-03-11)
PROC: 30233N1 Transfusion of Nonautologous Red Blood Cells into Peripheral Vein, Percutaneous Approach (ICD-10-PCS; 2025-03-18)
DX: C83.398 Diffuse large B-cell lymphoma of other extranodal and solid organ sites (principal); E88.3 Tumor lysis syndrome; N17.0 Acute kidney failure with tubular necrosis; G93.41 Metabolic encephalopathy; R57.8 Other shock; I62.03 Nontraumatic chronic subdural hemorrhage; N39.0 Urinary tract infection, site not specified; E87.21 Acute metabolic acidosis; I97.191 Other postprocedural cardiac functional disturbances following other surgery; Z16.24 Resistance to multiple antibiotics; D68.59 Other primary thrombophilia; D62 Acute posthemorrhagic anemia; K92.0 Hematemesis; M62.82 Rhabdomyolysis; N13.30 Unspecified hydronephrosis; K80.46 Calculus of bile duct with acute and chronic cholecystitis without obstruction; N32.89 Other specified disorders of bladder; I10 Essential (primary) hypertension; E78.5 Hyperlipidemia, unspecified; K75.4 Autoimmune hepatitis; R39.15 Urgency of urination; R32 Unspecified urinary incontinence; E86.0 Dehydration; I95.81 Postprocedural hypotension; E88.09 Other disorders of plasma-protein metabolism, not elsewhere classified; K74.69 Other cirrhosis of liver; K76.0 Fatty (change of) liver, not elsewhere classified; C67.9 Malignant neoplasm of bladder, unspecified; E87.6 Hypokalemia; E83.51 Hypocalcemia; D69.6 Thrombocytopenia, unspecified; N26.1 Atrophy of kidney (terminal); E83.39 Other disorders of phosphorus metabolism; R31.9 Hematuria, unspecified; D63.8 Anemia in other chronic diseases classified elsewhere; E79.0 Hyperuricemia without signs of inflammatory arthritis and tophaceous disease; Z66 Do not resuscitate; B95.2 Enterococcus as the cause of diseases classified elsewhere; Q62.5 Duplication of ureter; Z98.890 Other specified postprocedural states; Z90.710 Acquired absence of both cervix and uterus; Z88.5 Allergy status to narcotic agent; Z91.040 Latex allergy status; Z88.0 Allergy status to penicillin; Z88.6 Allergy status to analgesic agent; Z79.899 Other long term (current) drug therapy; Z87.442 Personal history of urinary calculi; Z23 Encounter for immunization
CPT/HCPCS: 36415; 36416; 36430; 50433; 70450; 71045; 71250; 74176; 76705; 76770; 76942; 78580; 80048; 80053; 80076; 81001; 82105; 82140; 82306; 82550; 82570; 82728; 83540; 83550; 83615; 83735; 83880; 83970; 84100; 84156; 84300; 84443; 84484; 84540; 84550; 85025; 85060; 85610; 85730; 86850; 86900; 86901; 87077; 87086; 87186; 87428; 88307; 88341; 88342; 88365; 88377; 93005; 93306; 96372; 99285; A4217; A9540; C1729; C1769; C1894; J0612; J0613; J1644; J1650; J1720; J1956; J2060; J2250; J2272; J2354; J2405; J2470; J2704; J2783; J3010; J3373; J3480; J7030; J7070; J7500; J7510; J7512; J7999; P9016; P9047; P9059; Q5105; Q9967